=== PATIENT | female | born 1965 | race Caucasian/White ===

== ENCOUNTER 2016-12-11 05:30 | Emergency (ER) | payer OTHER, MEDICAID ==
[~2016-12-11] VITALS: Ht 167.6 cm; Wt 92.7 kg
[~2016-12-11 05:30] MED LIST: ALPR0.254 PO; ASPI-496 PO; CEFD300C2 PO; NICO1PAT10 TD; SIMV40TA PO; TRAM50TA2 PO
[2016-12-11] MEDS ORDERED: HYDROcodone/APAP 5/325 TABLET ONE (05:59)
[2016-12-11] MEDS ORDERED: HYDROcodone/APAP 5/325 TABLET PO ONE (06:00)
[2016-12-11 07:13] VITALS: BP 117/49
== END 2016-12-11 08:17 | disposition home or self-care (01) ==
LOC: ED 07:53
DX: S92.355A Nondisplaced fracture of fifth metatarsal bone, left foot, initial encounter for closed fracture (principal); F17.210 Nicotine dependence, cigarettes, uncomplicated; W19.XXXA Unspecified fall, initial encounter; Y93.89 Activity, other specified; Y92.89 Other specified places as the place of occurrence of the external cause; Y99.8 Other external cause status
CPT/HCPCS: 29515

== ENCOUNTER 2016-12-17 21:47 | Emergency (ER) | payer OTHER, MEDICAID ==
[~2016-12-17] VITALS: Ht 167.6 cm; Wt 100.5 kg
[~2016-12-17 21:47] MED LIST changes: -CEFD300C2 PO; +CEFD300C37 PO
[2016-12-17 21:48] VITALS: BP 143/89
== END 2016-12-17 23:33 | disposition home or self-care (01) ==
LOC: ED 22:52
DX: S93.602A Unspecified sprain of left foot, initial encounter (principal); S90.32XA Contusion of left foot, initial encounter; M54.9 Dorsalgia, unspecified; G89.29 Other chronic pain; W18.40XA Slipping, tripping and stumbling without falling, unspecified, initial encounter; Y93.89 Activity, other specified; Y92.89 Other specified places as the place of occurrence of the external cause; Y99.8 Other external cause status
CPT/HCPCS: 99284

== ENCOUNTER 2017-04-09 15:42 | Emergency (ER) | payer MEDICAID, OTHER ==
[~2017-04-09] VITALS: Ht 167.6 cm; Wt 96.1 kg
[2017-04-09] MEDS ORDERED: HYDROcodone/APAP 5/325 TABLET PO ONE (16:30)
[2017-04-09] MEDS ORDERED: CYCLOBENZAPRINE 10 MG TABLET PO ONE (16:30)
[2017-04-09] MEDS ORDERED: SODIUM CHLORIDE FLUSH 10ML SYR IVF ONE (16:30)
[2017-04-09] MEDS ORDERED: CYCLOBENZAPRINE 10 MG TABLET ONE (16:39)
[2017-04-09] MEDS ORDERED: HYDROcodone/APAP 5/325 TABLET ONE (16:39)
[2017-04-09 16:40] LABS: HEMATOCRIT 44.2 % (34.6-47.8); HEMOGLOBIN 14.7 g/dL (11.7-16.4); WHITE BLOOD COUNT 8.4 x10^3/uL (3.4-10)
[2017-04-09 16:47] LABS: ASPARTATE AMINO TRANSFERASE 41 U/L (15-37); BLOOD UREA NITROGEN 10 mg/dL (7-18)
[2017-04-09] MEDS ORDERED: OMNIPAQUE 350 MG/ML, 100ML BOTTLE ONE (17:59)
[2017-04-09 18:53] VITALS: BP 121/79
== END 2017-04-09 18:55 | disposition home or self-care (01) ==
LOC: ED 18:49
DX: M54.42 Lumbago with sciatica, left side (principal)
CPT/HCPCS: 36415; 74174; 80053; 81003; 83690; 85025; 99285; Q9967

== ENCOUNTER 2017-04-17 14:59 | Emergency (ER) | payer MEDICAID ==
[~2017-04-17] VITALS: Ht 167.6 cm; Wt 99.0 kg
[2017-04-17] MEDS ORDERED: LORA1TAB46 PO (15:59)
[2017-04-17] MEDS ORDERED: FLUT9.9S INH (15:59)
[2017-04-17] MEDS ORDERED: morphine SULFATE 10 MG/ML, 1ML IVPush ONE (16:00)
[2017-04-17] MEDS ORDERED: ONDANSETRON 2MG/ML, 2ML IVPush ONE (16:00)
[2017-04-17] MEDS ORDERED: MORPHINE SULFATE 4 MG/ML, 1ML ONE (16:03)
[2017-04-17] MEDS ORDERED: ONDANSETRON 2MG/ML, 2ML ONE (16:03)
[2017-04-17 16:12] LABS: HEMATOCRIT 43.8 % (34.6-47.8); HEMOGLOBIN 14.4 g/dL (11.7-16.4); WHITE BLOOD COUNT 9.6 x10^3/uL (3.4-10)
[2017-04-17 16:19] LABS: ASPARTATE AMINO TRANSFERASE 33 U/L (15-37); BLOOD UREA NITROGEN 9 mg/dL (7-18)
[2017-04-17 17:59] LABS: PATH.CAST-FLAG NOT PRESENT; SPERM-FLAG NOT PRESENT; SRC-FLAG NOT PRESENT; XTAL-FLAG NOT PRESENT; YLC-FLAG NOT PRESENT
[2017-04-17 18:49] VITALS: BP 98/58
== END 2017-04-17 18:51 | disposition home or self-care (01) ==
LOC: ED 15:42
DX: N30.90 Cystitis, unspecified without hematuria (principal); G89.29 Other chronic pain
CPT/HCPCS: 36415; 72148; 80053; 81001; 85025; 87086; 96374; 96375; 99285; J2270; J2405

== ENCOUNTER 2018-03-21 12:48 | Emergency (ER) | payer MEDICAID ==
[~2018-03-21] VITALS: Ht 167.6 cm; Wt 89.2 kg
[~2018-03-21 12:48] MED LIST changes: +FLUT9.9S INH; +LORA1TAB46 PO; +NICO-485 TD; -NICO1PAT10 TD
[2018-03-21] MEDS ORDERED: DIAZEPAM 5 MG TABLET ONE (13:13)
[2018-03-21] MEDS ORDERED: KETOROLAC 30 MG/1 ML ONE (13:13)
[2018-03-21] MEDS ORDERED: KETOROLAC 60 MG/2 ML IM ONE (13:30)
[2018-03-21] MEDS ORDERED: KETOROLAC 30 MG/1 ML IM ONE (13:30)
[2018-03-21] MEDS ORDERED: DIAZEPAM 5 MG TABLET PO ONE (13:30)
[2018-03-21 13:42] VITALS: BP 131/83
[2018-03-21] MEDS ORDERED: HYDROcodone/APAP 5/325 TABLET ONE (13:47)
[2018-03-21] MEDS ORDERED: HYDROcodone/APAP 5/325 TABLET PO ONE (14:00)
== END 2018-03-21 14:14 | disposition home or self-care (01) ==
LOC: ED 14:05
DX: S39.012A Strain of muscle, fascia and tendon of lower back, initial encounter (principal); F17.200 Nicotine dependence, unspecified, uncomplicated; X58.XXXA Exposure to other specified factors, initial encounter; Y93.89 Activity, other specified; Y92.89 Other specified places as the place of occurrence of the external cause; Y99.8 Other external cause status
CPT/HCPCS: 96372; 99283; J1885

== ENCOUNTER 2018-03-22 16:45 | Emergency (ER) | payer MEDICAID ==
[~2018-03-22] VITALS: Ht 167.6 cm; Wt 92.2 kg
[2018-03-22 17:02] VITALS: BP 114/84
[2018-03-22] MEDS ORDERED: KETOROLAC 30 MG/1 ML ONE (17:42)
[2018-03-22] MEDS ORDERED: KETOROLAC 30 MG/1 ML IM ONE (18:00)
== END 2018-03-22 19:08 | disposition home or self-care (01) ==
LOC: ED 19:02
DX: G89.29 Other chronic pain (principal); M54.5 Low back pain; M46.1 Sacroiliitis, not elsewhere classified; F17.200 Nicotine dependence, unspecified, uncomplicated; Z88.0 Allergy status to penicillin
CPT/HCPCS: 99283

== ENCOUNTER 2020-05-14 10:06 | Emergency (ER) | payer MEDICAID, OTHER ==
[~2020-05-14] VITALS: Ht 167.6 cm; Wt 113.0 kg
[2020-05-14] MEDS ORDERED: ASPIRIN 81 MG TABLET CHEW PO ONE (10:30)
[2020-05-14] MEDS ORDERED: SODIUM CHLORIDE FLUSH 10ML SYR IVF ONE (10:30)
--- NOTE | 2020-05-14 10:30 | NUR ---
THIS IS A 55 YO FEMALE WHO COMES IN WITH CP THAT RADIATES TO BOTH ARMS SINCE 2100 LAST NIGHT. SHE STATES SHE HAD CP ABOUT 4-5 YEARS AGO AND THEY TOLD HER IT WAS ANXIETY. 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 PT DENIES ANY CARDIAC HX.
[2020-05-14] MEDS ORDERED: ASPIRIN 81 MG TABLET CHEW ONE (10:35)
--- NOTE | 2020-05-14 11:00 | NUR ---
PT MEDICATED WITH ASPIRIN PER OCT.
[2020-05-14 11:16] LABS: BASOPHILS # (AUTO) 0.06 x10^3/uL (0-0.1); BASOPHILS % (AUTO) 1 % (0-1); EOSINOPHILS # (AUTO) 0.41 x10^3/uL (0-0.4); EOSINOPHILS % (AUTO) 5 % (1-7); LYMPHOCYTES # (AUTO) 2.73 x10^3/uL (1-3.4); LYMPHOCYTES % (AUTO) 33 % (22-44); MD NO; MEAN CORPUSCULAR HEMOGLOBIN 29.6 pg (27.0-34.8); MEAN CORPUSCULAR HGB CONC 32.4 g/dL (32.4-35.8); MEAN PLATELET VOLUME 9.8 fL (7.4-10.4); MONOCYTES # (AUTO) 0.64 x10^3/uL (0.2-0.8); MONOCYTES % (AUTO) 8 % (2-9); NEUTROPHILS # (AUTO) 4.48 x10^3/uL (1.8-6.8); NEUTROPHILS % (AUTO) 54 % (42-75); PLATELET COUNT 259 x10^3/uL (130-400); RED BLOOD COUNT 4.97 x10^6/uL (3.82-5.3); RED CELL DISTRIBUTION WIDTH 14.9 % (9.6-15.2)
[2020-05-14 11:21] LABS: ALANINE AMINOTRANSFERASE 24 U/L (12-78); ALBUMIN 3.4 g/dL (3.4-5.0); ANION GAP 5 mmol/L (5-15); CALCIUM 8.9 mg/dL (8.5-10.1); CHLORIDE 112 mmol/L (98-107); CREATININE 0.81 mg/dL (0.55-1.02)
[2020-05-14 11:26] LABS: ALKALINE PHOSPHATASE 102 U/L (45-117); BILIRUBIN,TOTAL 0.2 mg/dL (0.2-1.0); T4 (THYROXINE) 9.4 mcg/dL (4.8-13.9); TOTAL PROTEIN 6.8 g/dL (6.4-8.2); TROPONIN I < 0.015 ng/mL (0.000-0.045)
--- NOTE | 2020-05-14 11:41 | NUR ---
PT AMBULATED TO RESTROOM. 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 PT STATES PAIN IS NOW AT A 5/10.
[2020-05-14] MEDS ORDERED: CLIN300C8 PO (11:46)
[2020-05-14] MEDS ORDERED: PREG50CA PO (11:46)
[2020-05-14] MEDS ORDERED: TIZA4TAB2 PO (11:46)
[2020-05-14 13:08] LABS: TROPONIN I < 0.015 ng/mL (0.000-0.045)
[2020-05-14 13:11] VITALS: BP 113/86
== END 2020-05-14 14:05 | disposition home or self-care (01) ==
LOC: ED 11:34
DX: R07.89 Other chest pain (principal); F17.200 Nicotine dependence, unspecified, uncomplicated
CPT/HCPCS: 36415; 71045; 80053; 83690; 84436; 84443; 84484; 85025; 93005; 99285